=== PATIENT | female | born 1990 | race African-American/Black ===

== ENCOUNTER 2019-07-13 07:14 | Emergency (ER) | payer MEDICAID ==
[~2019-07-13] VITALS: Ht 172.7 cm; Wt 78.0 kg
[~2019-07-13 07:14] MED LIST: ONDA4TAB5; PREN-140
[2019-07-13] MEDS ORDERED: MORPHINE SULFATE 4 MG/ML CPJ (NOT FOR IM USE) IV STA (08:26)
[2019-07-13] MEDS ORDERED: ONDANSETRON HCL 4MG/2ML INJ IV STA (08:26)
[2019-07-13] MEDS ORDERED: SODIUM CHLORIDE 0.9% 1,000 ML IV ONE (08:26)
[2019-07-13 09:29] LABS: HEMATOCRIT. 39.8 % (36.0-48.0); HEMOGLOBIN. 13.6 g/dL (12.0-16.0); MEAN CORPUSCULAR HEMOGLOBIN 28.9 pg (28.0-32.0); MEAN CORPUSCULAR VOLUME 84.3 fL (81.0-99.0); MEAN PLATELET VOLUME 9.7 fl (7.4-10.4); PLATELET 180 x1000/uL (130-400); RED BLOOD CELL COUNT 4.72 mill/uL (4.2-5.4); RED CELL DISTRIBUTION WIDTH 14.1 % (11.6-14.6)
[2019-07-13 09:35] LABS: CHLORIDE 106 mEq/L (98-107)
[2019-07-13 09:54] LABS: PLATELET ESTIMATE NORMAL
[2019-07-13 10:46] LABS: CLARITY URINE HAZY (CLEAR); COLOR URINE YELLOW (YELLOW); KETONES URINE 3+ (NEGATIVE); LEUKOCYTE ESTERASE URINE NEGATIVE (NEGATIVE); NITRITE URINE NEGATIVE (NEGATIVE); OCCULT BLOOD URINE NEGATIVE (NEGATIVE); PROTEIN URINE 1+ (NEGATIVE); SPECIFIC GRAVITY URINE 1.036 (1.005-1.030); UROBILINOGEN URINE 0.2 E.U./dL (0.2-1.0)
[2019-07-13] MEDS ORDERED: IOHEXOL-300 100 ML BOTTLE ONE (10:57)
[2019-07-13] MEDS ORDERED: POTASSIUM CHLORIDE 20MEQ TABLET SR PO ONE (13:15)
[2019-07-13 13:28] VITALS: BP 115/70
== END 2019-07-13 13:30 | disposition home or self-care (01) ==
LOC: ER 07:27
DX: R10.30 Lower abdominal pain, unspecified (principal); E87.6 Hypokalemia; K58.9 Irritable bowel syndrome, unspecified; R03.0 Elevated blood-pressure reading, without diagnosis of hypertension
CPT/HCPCS: 36415; 74177; 80053; 81003; 81025; 85025; 96361; 96374; 96375; 99284; J2270; J2405; J7030; Q9967

== ENCOUNTER 2019-11-28 14:00 | Emergency (ER) | payer MEDICAID ==
[~2019-11-28] VITALS: Ht 172.7 cm; Wt 90.0 kg
[2019-11-28 15:06] VITALS: BP 121/52
[2019-11-28 17:03] LABS: CLARITY URINE CLOUDY (CLEAR); COLOR URINE YELLOW (YELLOW); KETONES URINE NEGATIVE (NEGATIVE); LEUKOCYTE ESTERASE URINE NEGATIVE (NEGATIVE); NITRITE URINE NEGATIVE (NEGATIVE); OCCULT BLOOD URINE NEGATIVE (NEGATIVE); PH URINE 6.5 (4.5-8.0); PROTEIN URINE NEGATIVE (NEGATIVE); SPECIFIC GRAVITY URINE 1.027 (1.005-1.030)
[2019-11-28] MEDS ORDERED: LIDOCAINE HCL 2% JELLY 5ML TOP ONE (17:15)
== END 2019-11-28 18:17 | disposition home or self-care (01) ==
LOC: ER 14:07
DX: N89.8 Other specified noninflammatory disorders of vagina (principal)
CPT/HCPCS: 81003; 81025; 99283